=== PATIENT | female | born 1950 | race African-American/Black ===

== ENCOUNTER 2019-10-01 05:49 | Inpatient (IN) ==
[2019-09-23 13:31] LABS: Basophils % 0.2 % (0.0-0.8); Eosinophils # 0.1 10*3/uL (0.0-0.87); Eosinophils % 1.3 % (0.00-10.9); Hematocrit 39.7 VOL% (35.7-47.0); Hemoglobin 12.6 GM/DL (12.0-16.0); Immature Granulocytes % 0.2 %; Immature Granulocytes Absolute 0.01 #; Lymphocytes # 2.1 10*3/uL (1.4-4.0); Lymphocytes % 39.7 % (21.3-54.2); Mean Corpuscular HGB Conc 31.7 GM/DL (32-36); Mean Corpuscular Volume 98.8 FL (87-102); Mean Platelet Volume 9.6 FL (9.6-12.0); Monocytes % 9.7 % (1.7-12.7); Neutrophils % 48.9 % (38.7-73.9); Platelet Count 158 T/CUMM (130-400); Red Blood Count 4.02 MC/CUMM (3.8-5.5); Red Cell Distribution Width 12.1 % (9.3-17.3); White Blood Count 5.3 T/CUMM (4-12)
[2019-09-23 13:47] LABS: Calcium 8.8 MG/DL (8.5-10.1); Osmolality,Calculated 273.5 MOS/KG (273-304)
[2019-10-01] MEDS ORDERED: ceFAZolin 1,000 MG VIAL ONE (05:53)
[2019-10-01] MEDS ORDERED: LACTATED RINGERS 1,000 ML IV SCH (06:00)
[2019-10-01] MEDS ORDERED: MIDAZOLAM 2 MG/2 ML VIAL ONE (06:15)
[2019-10-01] MEDS ORDERED: fentaNYL 100 MCG/2 ML VIAL ONE (06:15)
[2019-10-01] MEDS ORDERED: LIDOCAINE 2% 5 ML VIAL ONE ×2 (06:15→13:22)
[2019-10-01] MEDS ORDERED: BUPIVACAINE MPF 0.5% /EPI 30 ML VIAL ONE (06:15)
[2019-10-01] MEDS ORDERED: DEXAMETHASONE 4 MG/1 ML VIAL ONE (06:22)
[2019-10-01] MEDS ORDERED: INDOCYANINE GREEN 25 MG VIAL IV ONE (06:26)
[2019-10-01] MEDS ORDERED: TISSUE ADHESIVE 1 EACH APPLICATOR TOP ONE (06:26)
[2019-10-01] MEDS ORDERED: ALBUTEROL/IPRATROPIUM 3 ML NEB RESP TX STA (06:27)
[2019-10-01] MEDS ORDERED: ceFAZolin 1,000 MG in SYRINGE 1 EACH IV ONE (06:30)
[2019-10-01] MEDS ORDERED: SUGAMMADEX 200 MG/2 ML VIAL IV ONE (10:33)
[2019-10-01] MEDS ORDERED: PHENYLEPHRINE DRIP 20 MG/250 ML PREMIX IV ONE ×2 (11:09→13:25)
[2019-10-01] MEDS ORDERED: ACETAMINOPHEN 325 MG TABLET PO PRN (12:52)
[2019-10-01] MEDS ORDERED: HYDROmorphone 2 MG/1 ML VIAL IV PRN (12:52)
[2019-10-01] MEDS ORDERED: ONDANSETRON 4 MG/2 ML VIAL IV PRN ×2 (12:52→13:04)
[2019-10-01] MEDS ORDERED: KETOROLAC 15 MG/1 ML VIAL IV PRN (12:52)
[2019-10-01] MEDS: HYDROmorphone 2 MG/1 ML VIAL IV PRN ×2 (13:00→13:10)
[2019-10-01] MEDS ORDERED: ALBUTEROL/IPRATROPIUM 3 ML NEB RESP TX ONE ×2 (13:00→13:03)
[2019-10-01] MEDS ORDERED: propofoL 200 MG/20 ML VIAL IV ONE (13:22)
[2019-10-01] MEDS ORDERED: SEVOFLURANE 1 UNIT/15 MINUTE INH ONE (13:22)
[2019-10-01] MEDS ORDERED: KETAMINE 500 MG/10 ML VIAL ONE (13:23)
[2019-10-01] MEDS ORDERED: MINERAL OIL/PETROLATUM OPH OINT 3.5 GM TUBE ONE (13:23)
[2019-10-01] MEDS ORDERED: fentaNYL 250 MCG/5 ML VIAL ONE (13:23)
[2019-10-01] MEDS ORDERED: GLYCOPYRROLATE 0.4 MG/2 ML VIAL ONE (13:24)
[2019-10-01] MEDS ORDERED: ROCURONIUM 100 MG/10 ML VIAL IV ONE (13:24)
[2019-10-01] MEDS ORDERED: LABETALOL 100 MG/20 ML VIAL IV ONE ×2 (14:00→14:33)
[2019-10-01] MEDS ORDERED: LABETALOL 20 MG/4 ML SYRINGE IV PRN (14:44)
[2019-10-01] MEDS: METHOCARBAMOL INJ 500 MG in SODIUM CHLORIDE 0.9% 100 ML IV SCH ×2 (16:44→23:30)
[2019-10-01] MEDS: ENALAPRIL 10 MG TABLET PO SCH (16:47)
[2019-10-01] MEDS: LACTATED RINGERS 1,000 ML IV SCH ×2 (16:47→23:30)
[2019-10-01] MEDS ORDERED: FLUTICASONE PROPION SALMETEROL INH SCH (21:00)
[2019-10-01] MEDS: CETIRIZINE 10 MG TABLET PO SCH (21:19)
[2019-10-01] MEDS: ISOSORBIDE MONONITRATE 20 MG TABLET PO SCH (21:19)
[2019-10-02 05:54] LABS: Basophils % 0.1 % (0.0-0.8); Hematocrit 37.2 VOL% (35.7-47.0); Hemoglobin 11.6 GM/DL (12.0-16.0); Immature Granulocytes % 0.4 %; Immature Granulocytes Absolute 0.04 #; Lymphocytes # 0.8 10*3/uL (1.4-4.0); Lymphocytes % 7.8 % (21.3-54.2); Mean Corpuscular HGB Conc 31.2 GM/DL (32-36); Mean Corpuscular Volume 98.7 FL (87-102); Mean Platelet Volume 10.3 FL (9.6-12.0); Monocytes % 5.6 % (1.7-12.7); Neutrophils % 86.1 % (38.7-73.9); Platelet Count 149 T/CUMM (130-400); Red Blood Count 3.77 MC/CUMM (3.8-5.5); Red Cell Distribution Width 12.2 % (9.3-17.3); White Blood Count 10.4 T/CUMM (4-12)
[2019-10-02 06:19] LABS: Calcium 8.4 MG/DL (8.5-10.1); Osmolality,Calculated 276.4 MOS/KG (273-304)
[2019-10-02] MEDS: ENOXAPARIN 40 MG/0.4 ML SYRINGE SUBCUT SCH (06:25)
[2019-10-02] MEDS ORDERED: NALOXEGOL 25 MG PO SCH (09:00)
[2019-10-02] MEDS: ALBUTEROL/IPRATROPIUM 3 ML NEB RESP TX SCH ×3 (09:05→19:41)
[2019-10-02] MEDS: PARoxetine 20 MG TABLET PO SCH (09:29)
[2019-10-02] MEDS: METHOCARBAMOL INJ 500 MG in SODIUM CHLORIDE 0.9% 100 ML IV SCH ×2 (09:30→15:28)
[2019-10-02] MEDS: LACTATED RINGERS 1,000 ML IV SCH ×2 (09:30→20:51)
[2019-10-02] MEDS: ISOSORBIDE MONONITRATE 20 MG TABLET PO SCH ×2 (09:31→20:52)
[2019-10-02] MEDS: ENALAPRIL 10 MG TABLET PO SCH (09:31)
[2019-10-02] MEDS ORDERED: BACLOFEN 10 MG TABLET PO PRN (09:36)
[2019-10-02] MEDS ORDERED: hydrOXYzine HCL 25 MG TABLET PO PRN (09:36)
[2019-10-02] MEDS: oxyCODONE/ACETAMINOPHEN 5-325 MG TABLET PO PRN (12:44)
[2019-10-02] MEDS: INSULIN REGULAR 100 UNIT/ML SUBCUT SCH ×2 (12:44→18:36)
[2019-10-02] MEDS: CETIRIZINE 10 MG TABLET PO SCH (20:52)
[2019-10-03] MEDS: METHOCARBAMOL INJ 500 MG in SODIUM CHLORIDE 0.9% 100 ML IV SCH ×3 (00:19→15:18)
[2019-10-03] MEDS: INSULIN REGULAR 100 UNIT/ML SUBCUT SCH ×4 (00:25→17:50)
[2019-10-03] MEDS: ALBUTEROL/IPRATROPIUM 3 ML NEB RESP TX SCH ×4 (00:25→19:17)
[2019-10-03 05:35] LABS: Basophils % 0.1 % (0.0-0.8); Eosinophils % 0.2 % (0.00-10.9); Hematocrit 36.8 VOL% (35.7-47.0); Hemoglobin 11.3 GM/DL (12.0-16.0); Immature Granulocytes % 0.4 %; Immature Granulocytes Absolute 0.03 #; Lymphocytes % 23.3 % (21.3-54.2); Mean Corpuscular HGB Conc 30.7 GM/DL (32-36); Mean Corpuscular Volume 100.3 FL (87-102); Mean Platelet Volume 9.9 FL (9.6-12.0); Monocytes % 5.7 % (1.7-12.7); Neutrophils % 70.3 % (38.7-73.9); Platelet Count 134 T/CUMM (130-400); Red Blood Count 3.67 MC/CUMM (3.8-5.5); Red Cell Distribution Width 12.3 % (9.3-17.3); White Blood Count 8.4 T/CUMM (4-12)
[2019-10-03 06:10] LABS: Calcium 8.4 MG/DL (8.5-10.1); Osmolality,Calculated 275.4 MOS/KG (273-304)
[2019-10-03] MEDS: LACTATED RINGERS 1,000 ML IV SCH ×2 (08:09→19:32)
[2019-10-03] MEDS: ENALAPRIL 10 MG TABLET PO SCH (08:12)
[2019-10-03] MEDS: oxyCODONE/ACETAMINOPHEN 5-325 MG TABLET PO PRN (08:12)
[2019-10-03] MEDS: FUROSEMIDE 20 MG TABLET PO SCH (08:13)
[2019-10-03] MEDS: PARoxetine 20 MG TABLET PO SCH (08:13)
[2019-10-03] MEDS: POTASSIUM CHLORIDE 10 MEQ TABLET PO SCH (08:13)
[2019-10-03] MEDS: allopurinoL 100 MG TABLET PO SCH (08:13)
[2019-10-03] MEDS: ENOXAPARIN 40 MG/0.4 ML SYRINGE SUBCUT SCH (08:13)
[2019-10-03] MEDS: ATORVASTATIN 40 MG TABLET PO SCH (08:13)
[2019-10-03] MEDS: ISOSORBIDE MONONITRATE 20 MG TABLET PO SCH ×2 (08:13→22:04)
[2019-10-03] MEDS: CETIRIZINE 10 MG TABLET PO SCH (22:04)
[2019-10-04] MEDS: INSULIN REGULAR 100 UNIT/ML SUBCUT SCH ×4 (00:10→18:02)
[2019-10-04] MEDS: METHOCARBAMOL INJ 500 MG in SODIUM CHLORIDE 0.9% 100 ML IV SCH ×3 (00:11→15:35)
[2019-10-04] MEDS: ALBUTEROL/IPRATROPIUM 3 ML NEB RESP TX SCH ×4 (00:23→20:10)
[2019-10-04 05:32] LABS: Basophils % 0.2 % (0.0-0.8); Eosinophils % 0.5 % (0.00-10.9); Hematocrit 32.1 VOL% (35.7-47.0); Hemoglobin 10.4 GM/DL (12.0-16.0); Immature Granulocytes % 0.3 %; Immature Granulocytes Absolute 0.02 #; Lymphocytes # 1.4 10*3/uL (1.4-4.0); Lymphocytes % 22.6 % (21.3-54.2); Mean Corpuscular HGB Conc 32.4 GM/DL (32-36); Mean Corpuscular Volume 98.5 FL (87-102); Mean Platelet Volume 10.4 FL (9.6-12.0); Monocytes % 9.3 % (1.7-12.7); Neutrophils % 67.1 % (38.7-73.9); Platelet Count 124 T/CUMM (130-400); Red Blood Count 3.26 MC/CUMM (3.8-5.5); Red Cell Distribution Width 12.4 % (9.3-17.3); White Blood Count 6.1 T/CUMM (4-12)
[2019-10-04 05:54] LABS: Calcium 8.2 MG/DL (8.5-10.1); Osmolality,Calculated 274.4 MOS/KG (273-304)
[2019-10-04] MEDS: LACTATED RINGERS 1,000 ML IV SCH ×3 (07:19→22:02)
[2019-10-04] MEDS: ENALAPRIL 10 MG TABLET PO SCH (08:55)
[2019-10-04] MEDS: POTASSIUM CHLORIDE 10 MEQ TABLET PO SCH (08:55)
[2019-10-04] MEDS: PARoxetine 20 MG TABLET PO SCH (08:56)
[2019-10-04] MEDS: ATORVASTATIN 40 MG TABLET PO SCH (08:56)
[2019-10-04] MEDS: allopurinoL 100 MG TABLET PO SCH (08:56)
[2019-10-04] MEDS: FUROSEMIDE 20 MG TABLET PO SCH (08:56)
[2019-10-04] MEDS: ISOSORBIDE MONONITRATE 20 MG TABLET PO SCH ×2 (08:56→22:01)
[2019-10-04] MEDS: ENOXAPARIN 40 MG/0.4 ML SYRINGE SUBCUT SCH (09:00)
[2019-10-04] MEDS: CETIRIZINE 10 MG TABLET PO SCH (22:02)
[2019-10-05] MEDS: ALBUTEROL/IPRATROPIUM 3 ML NEB RESP TX SCH ×2 (00:10→07:33)
[2019-10-05] MEDS: INSULIN REGULAR 100 UNIT/ML SUBCUT SCH ×2 (00:56→06:02)
[2019-10-05] MEDS: METHOCARBAMOL INJ 500 MG in SODIUM CHLORIDE 0.9% 100 ML IV SCH ×2 (01:45→09:18)
[2019-10-05 04:54] LABS: Calcium 8.6 MG/DL (8.5-10.1); Osmolality,Calculated 273.5 MOS/KG (273-304)
[2019-10-05 05:22] LABS: Basophils % 0.3 % (0.0-0.8); Eosinophils % 0.4 % (0.00-10.9); Hematocrit 32.7 VOL% (35.7-47.0); Hemoglobin 10.8 GM/DL (12.0-16.0); Immature Granulocytes % 0.6 %; Immature Granulocytes Absolute 0.04 #; Lymphocytes # 1.5 10*3/uL (1.4-4.0); Lymphocytes % 21.2 % (21.3-54.2); Mean Corpuscular Volume 95.9 FL (87-102); Mean Platelet Volume 10.5 FL (9.6-12.0); Monocytes % 9.3 % (1.7-12.7); Neutrophils % 68.2 % (38.7-73.9); Platelet Count 138 T/CUMM (130-400); Red Blood Count 3.41 MC/CUMM (3.8-5.5); Red Cell Distribution Width 12.1 % (9.3-17.3)
[2019-10-05] MEDS: ISOSORBIDE MONONITRATE 20 MG TABLET PO SCH ×2 (07:31→09:19)
[2019-10-05] MEDS: ENOXAPARIN 40 MG/0.4 ML SYRINGE SUBCUT SCH (09:11)
[2019-10-05] MEDS: POTASSIUM CHLORIDE 10 MEQ TABLET PO SCH (09:12)
[2019-10-05] MEDS: ENALAPRIL 10 MG TABLET PO SCH (09:12)
[2019-10-05] MEDS: PARoxetine 20 MG TABLET PO SCH (09:16)
[2019-10-05] MEDS: FUROSEMIDE 20 MG TABLET PO SCH (09:16)
[2019-10-05] MEDS: ATORVASTATIN 40 MG TABLET PO SCH (09:17)
[2019-10-05] MEDS: allopurinoL 100 MG TABLET PO SCH (09:17)
[2019-10-05 09:20] VITALS: BP 160/99
== END 2019-10-05 11:00 | disposition home health service (06) | DRG 330 ==
LOC: N.OR 05:49 → N.SDSINP 05:49 → MERGE 12:52 → N.SDSINP 12:52 → N.3E 15:01
PROVIDERS: ADMIT Student in an Organized Health Care Education/Training Program; ATTEND Student in an Organized Health Care Education/Training Program